=== PATIENT | female | born 1925 | race African-American/Black ===

== ENCOUNTER 2016-08-04 13:47 | Outpatient (CLI) | payer MEDICARE, MEDICAID ==
--- NOTE | 2016-08-04 16:10 | RAD ---
THREE VIEWS LUMBAR SPINE: History: Patient fell years ago. Chronic pain. Comparison: None. FINDINGS: Three views lumbar spine: Five lumbar type vertebral bodies. Vertebral body heights are maintained. No significant fractures . 2.2 mm anterolisthesis of L4 upon L5. Atherosclerosis of the aorta is noted. There is mild degenerative change in the posterior elements at L4-5 and L5-S1. IMPRESSION: Grade I anterolisthesis of L4 on L5. POS: MIKE
--- NOTE | 2016-08-04 16:11 | RAD ---
RIGHT HIP TWO VIEWS: History: Patient fell years ago. Persistent pain since the incident. FINDINGS: Moderate degenerative change. Prominent osteophyte formation on the superolateral acetabulum. Cont our of the femoral head is maintained. No fracture. IMPRESSION: Mild degenerative change. POS: MIKE
== END 2016-08-04 13:48 | disposition home or self-care (01) ==
LOC: MADRAD 13:47
PROVIDERS: ATTEND Family Medicine
DX: M25.551 Pain in right hip (principal)
CPT/HCPCS: 72100